=== PATIENT | male | born 1940 | race Caucasian/White ===

== ENCOUNTER 2019-01-21 10:16 | Day surgery (SDC) | payer MEDICARE, OTHER ==
[~2019-01-21] VITALS: Ht 170.2 cm; Wt 71.1 kg
[~2019-01-21 10:16] MED LIST: LEVO75TA4 PO; LISI-542 PO; LOVA40TA PO; METO1TAB87 PO; NS 1,000 ML IV ONE; PANT40TA3 PO; SUCR1TA PO; TRAM50TA2 PO
--- NOTE | 2019-01-21 12:21 | ROOR ---
Patient Name: Lorenzo Kenny Procedure Date: 01/21/2019 12:04 PM Date of : 1940 Age: 78 Room: [facility] Gender: Male Note Status: Finalized Procedure: Upper GI endoscopy Indications: Dysphagia Providers: Jose Cruz NEWSOME MD Referring MD: KADI COON MD Requesting Provider: Medicines: Monitored Anesthesia Care Complications: No immediate complications. Procedure: Pre-Anesthesia Assessment: - The heart rate, respiratory rate, oxygen saturations, blood pressure, adequacy of pulmonary ventilation, and response to care were monitored throughout the procedure. The Endoscope was introduced through the mouth, and advanced to the second part of duodenum. The upper GI endoscopy was accomplished without difficulty. The patient tolerated the procedure well. Findings: The esophagus was normal. The stomach was normal. The examined duodenum was normal. Prominent, but not necessarily abnormal papilla. This was biopsied with a cold forceps for histology. No endoscopic abnormality was evident in the esophagus to explain the patient's complaint of dysphagia. Impression: - Normal esophagus. - Normal stomach. - Normal examined duodenum. - Prominent, but not necessarily abnormal papilla. This was biopsied with a cold forceps for histology. Recommendation: - Continue present medications. - Await pathology results. - Follow an antireflux regimen. - Telephone endoscopist for pathology results in 2 weeks. Jose Cruz Newsome MD Jose Cruz NEWSOME MD 01/21/2019 12:21:29 PM Electronically signed by Jose Cruz NEWSOME MD Number of Addenda: 0 Note Initiated On: 01/21/2019 12:04 PM Estimated Blood Loss: Estimated blood loss: none.
[2019-01-21] MEDS ORDERED: PROPOFOL 200 MG/20 ML VIAL As Ordered ONE (12:25)
[2019-01-21] MEDS ORDERED: LIDOCAINE 2% INJ 100 MG/5 ML SDV (FOR ANES.) As Ordered ONE (12:25)
--- NOTE | 2019-01-21 12:39 | ROOR ---
Patient Name: Lorenzo Kenny Procedure Date: 01/21/2019 12:05 PM Date of : 1940 Age: 78 Room: [facility] Gender: Male Note Status: Finalized Procedure: Colonoscopy Indications: Change in bowel habits Providers: Jose Cruz NEWSOME MD Referring MD: KADI COON MD Requesting Provider: Medicines: Monitored Anesthesia Care Complications: No immediate complications. Procedure: Pre-Anesthesia Assessment: - The heart rate, respiratory rate, oxygen saturations, blood pressure, adequacy of pulmonary ventilation, and response to care were monitored throughout the procedure. The Colonoscope was introduced through the anus and advanced to the terminal ileum, with identification of the appendiceal orifice and IC valve. The colonoscopy was performed without difficulty. The patient tolerated the procedure well. The quality of the bowel preparation was good. Findings: The perianal and digital rectal examinations were normal. The colon (entire examined portion) was redundant. Internal hemorrhoids were found during retroflexion. The hemorrhoids were large. A few medium-mouthed diverticula were found in the sigmoid colon. The exam was otherwise without abnormality on direct and retroflexion views. Impression: - Redundant colon. - Internal hemorrhoids. - Mild diverticulosis in the sigmoid colon. - The examination was otherwise normal on direct and retroflexion views. - No specimens collected. Recommendation: - Miralax 1 capful (17 grams) in 8 ounces of water daily. - If necessary, may increase to Miralax 1 capful (17 grams) in 8 ounces of water twice a day. Jose Cruz Newsome MD Jose Cruz NEWSOME MD 01/21/2019 12:39:05 PM Electronically signed by Jose Cruz NEWSOME MD Number of Addenda: 0 Note Initiated On: 01/21/2019 12:05 PM Estimated Blood Loss: Estimated blood loss: none.
[2019-01-21 13:10] VITALS: BP 106/61
== END 2019-01-21 13:23 | disposition home or self-care (01) ==
LOC: M OPP 10:16
PROVIDERS: ATTEND Internal Medicine Gastroenterology
DX: Q43.8 Other specified congenital malformations of intestine (principal); K64.8 Other hemorrhoids; K57.30 Diverticulosis of large intestine without perforation or abscess without bleeding; R19.4 Change in bowel habit; R13.10 Dysphagia, unspecified; K29.80 Duodenitis without bleeding

== ENCOUNTER → 2019-03-31 | Outpatient (CLI) | payer OTHER ==
[~2019-03-31] MED LIST changes: -NS 1,000 ML IV ONE
[2019-03-31 17:20] LABS: BLOOD UREA NITROGEN 13 MG/DL (7-18); CPK CREATINE PHOSPHOKINASE 59 U/L (39-308); CREATININE FOR GFR 0.83 MG/DL (0.70-1.30); GLOMERULAR FILTRATION RATE > 60.0 (>42)
[2019-03-31 17:26] LABS: FOLATE 10.4 NG/ML; VITAMIN B12 LEVEL 664 PG/ML
== END ==
LOC: M WUC 12:50
PROVIDERS: ATTEND Psychiatry & Neurology Neurology
DX: E53.8 Deficiency of other specified B group vitamins (principal); E51.9 Thiamine deficiency, unspecified; H53.2 Diplopia; R13.10 Dysphagia, unspecified; R47.1 Dysarthria and anarthria; G72.9 Myopathy, unspecified